=== PATIENT | male | born 1985 | race African-American/Black ===

== ENCOUNTER 2023-02-13 01:47 | Emergency (ER) | payer SELFPAY ==
[~2023-02-13] VITALS: Ht 175.3 cm; Wt 70.0 kg
[2023-02-13 01:56] VITALS: O2SAT 100
[2023-02-13 08:46] VITALS: BP 132/86; PULSE 79; RESP 16; TEMP 98.5
== END 2023-02-13 09:03 | disposition home or self-care (01) ==
LOC: EDBD 01:55 → ER 01:55
DX: G92.9 Unspecified toxic encephalopathy (principal)
CPT/HCPCS: 99283; Z7610